=== PATIENT | female | born 1995 | race Two or more races ===

== ENCOUNTER 2017-01-14 20:56 | Emergency (ER) | payer SELFPAY ==
[~2017-01-14] VITALS: Ht 170.2 cm; Wt 60.8 kg
[2017-01-14 22:30] VITALS: BP 122/82
[2017-01-14] MEDS ORDERED: CYCLOBENZAPRINE HCL 10 MG TAB PO ONE (22:30)
[2017-01-14] MEDS ORDERED: IBUPROFEN 600 MG TAB PO ONE (22:30)
== END 2017-01-14 23:23 | disposition home or self-care (01) ==
LOC: ER 21:27
DX: S46.819A Strain of other muscles, fascia and tendons at shoulder and upper arm level, unspecified arm, initial encounter (principal); M54.9 Dorsalgia, unspecified; V49.49XA Driver injured in collision with other motor vehicles in traffic accident, initial encounter; Y93.89 Activity, other specified; Y99.8 Other external cause status; Y92.410 Unspecified street and highway as the place of occurrence of the external cause

== ENCOUNTER → 2018-05-29 | Day surgery (SDC) | payer MEDICAID ==
[~2018-05-29] MED LIST: GLYCOPYRROLATE 0.2 MG/ML 1ML VIAL ONE; KETOROLAC TROMETH 30 MG/ML 1ML VIAL IV ONE; KETOROLAC TROMETH 60MG/2ML VIAL IM ONE; MEPERIDINE HCL (50 MG/ML) 1 ML VIAL ONE; METOCLOPRAMIDE HCL 5MG/ml INJ 2ml VIAL IV ONE; MIDAZOLAM HCL 1MG/1ML-2 ML VIAL ONE; NEOSTIGMINE 1 MG/ML INJ (10mg/10ML VIAL) ONE; ONDANSETRON HCL 4 MG/2 ML VIAL ONE; ROCURONIUM 10MG/ML 10ML VIAL IV ONE; SODIUM CHLORIDE LOCK 10 ML ONE; fentaNYL CITRATE 100 MCG/2 ML VL IV ONE; fentaNYL CITRATE 100 MCG/2 ML VL ONE
[2018-05-29 12:44] VITALS: BP 110/69
== END | disposition home or self-care (01) ==
LOC: SUR 08:19
PROVIDERS: ATTEND Obstetrics & Gynecology Gynecologic Oncology
DX: N83.202 Unspecified ovarian cyst, left side (principal); N92.0 Excessive and frequent menstruation with regular cycle; Z3A.01 Less than 8 weeks gestation of pregnancy
CPT/HCPCS: 58558; 58662; J2175; J2765; J3010; J1885; J2250; J2405

== ENCOUNTER 2018-06-04 22:01 | Emergency (ER) | payer MEDICAID ==
[~2018-06-04] VITALS: Ht 170.2 cm; Wt 66.7 kg
[2018-06-04 22:06] VITALS: BP 140/82
== END 2018-06-04 23:48 | disposition home or self-care (01) ==
LOC: ER 22:03
DX: L76.82 Other postprocedural complications of skin and subcutaneous tissue (principal); L08.89 Other specified local infections of the skin and subcutaneous tissue; Y83.8 Other surgical procedures as the cause of abnormal reaction of the patient, or of later complication, without mention of misadventure at the time of the procedure

== ENCOUNTER 2020-03-22 09:57 | Emergency (ER) | payer MEDICAID ==
[~2020-03-22] VITALS: Ht 170.2 cm; Wt 74.8 kg
[2020-03-22 10:17] LABS: Basophils # (auto) 0 10 ^3/uL (0-0.2); Basophils % (auto) 0.5 % (0.0-2.0); Eosinophils # (auto) 0.1 10 ^3/uL (0-0.8); Eosinophils % (auto) 1.1 % (0.0-7.0); Hematocrit 43.2 % (36.0-46.0); Hemoglobin 14.8 g/dL (12.2-16.2); Lymphocytes # (auto) 1.9 10 ^3/uL (0.4-5.4); Lymphocytes % (auto) 34.6 % (10.0-50.0); Mean Corpuscular Hemoglobin 32.7 pg (28.0-32.0); Mean Corpuscular Hgb Conc. 34.3 g/dL (32.0-36.0); Mean Corpuscular Volume 95.2 fL (80.0-100.0); Monocytes # (auto) 0.3 10 ^3/uL (0-1.3); Monocytes % (auto) 6.1 % (0.0-12.0); Neutrophils # (auto) 3.1 10 ^3/uL (1.6-8.6); Neutrophils % (auto) 57.7 % (37.0-80.0); Nucleated Red Blood Cells % 0.1 %; Platelet Count (auto) 185 10^3/uL (140-450); Red Blood Cells 4.54 10^6/uL (4.0-5.20); White Blood Cell 5.4 10^3/uL (4.4-10.8)
[2020-03-22 10:36] LABS: Urine Bacteria NONE SEEN /hpf (None Seen); Urine Blood TRACE /uL (Negative); Urine Mucus FEW (None Seen); Urine Specific Gravity 1.016 (1.001-1.035); Urine WBC 1 /hpf (0 - 5)
[2020-03-22 10:51] LABS: Albumin 3.8 g/dL (3.4-5.0); BUN/Creatinine Ratio 9.3; Calcium 8.6 mg/dL (8.5-10.1); Potassium 3.6 mmol/L (3.5-5.1)
[2020-03-22 10:54] LABS: Bilirubin, Total 1.1 mg/dL (0.2-1.0)
[2020-03-22 11:35] VITALS: BP 113/59
== END 2020-03-22 12:07 | disposition home or self-care (01) ==
LOC: ER 09:57
DX: N20.0 Calculus of kidney (principal); D27.0 Benign neoplasm of right ovary
CPT/HCPCS: 36415; 74176; 80053; 81001; 81025; 85025

== ENCOUNTER 2020-11-28 18:09 | Emergency (ER) | payer MEDICAID | END 2020-11-28 20:34 | disposition left against medical advice (07) | LOC: ER 18:10 | DX: R31.9 Hematuria, unspecified (principal); Z53.21 Procedure and treatment not carried out due to patient leaving prior to being seen by health care provider ==

== ENCOUNTER 2020-12-02 12:27 | Emergency (ER) | payer MEDICAID ==
[~2020-12-02] VITALS: Ht 170.2 cm; Wt 78.9 kg
[2020-12-02 12:48] VITALS: BP 126/81
[2020-12-02 13:55] LABS: Urine Bacteria FEW /hpf (None Seen); Urine Blood Negative /uL (Negative); Urine Specific Gravity 1.012 (1.001-1.035); Urine WBC 5 /hpf (0 - 5)
[2020-12-02] MEDS ORDERED: cefTRIAXone SOD 1,000 MG VL IM ONE (14:00)
[2020-12-02] MEDS ORDERED: PHENAZOPYRIDINE HCL 100 MG TAB PO ONE (14:00)
[2020-12-02] MEDS ORDERED: KETOROLAC TROMETH 60MG/2ML VIAL IM ONE (14:30)
== END 2020-12-02 15:06 | disposition home or self-care (01) ==
LOC: ER 12:27
DX: N20.0 Calculus of kidney (principal); N39.0 Urinary tract infection, site not specified
CPT/HCPCS: 74176; 81001; 96372; 99284; J0696; J1885

== ENCOUNTER 2021-02-23 16:21 | Emergency (ER) | payer MEDICAID ==
[~2021-02-23] VITALS: Ht 170.2 cm; Wt 81.6 kg
[2021-02-23 16:35] VITALS: BP 139/95
[2021-02-23 17:52] LABS: Basophils # (auto) 0 10 ^3/uL (0-0.2); Basophils % (auto) 0.4 % (0.0-2.0); Eosinophils # (auto) 0 10 ^3/uL (0-0.8); Eosinophils % (auto) 0.3 % (0.0-7.0); Hematocrit 43.6 % (36.0-46.0); Lymphocytes # (auto) 1.4 10 ^3/uL (0.4-5.4); Lymphocytes % (auto) 18.2 % (10.0-50.0); Mean Corpuscular Hemoglobin 32.8 pg (28.0-32.0); Mean Corpuscular Hgb Conc. 34.5 g/dL (32.0-36.0); Monocytes # (auto) 0.3 10 ^3/uL (0-1.3); Monocytes % (auto) 4.3 % (0.0-12.0); Neutrophils % (auto) 76.8 % (37.0-80.0); Nucleated Red Blood Cells % 0.1 %; Platelet Count (auto) 203 10^3/uL (140-450); Red Blood Cells 4.59 10^6/uL (4.0-5.20); Red Cell Distribution Width 13.3 % (11.8-14.3); White Blood Cell 7.9 10^3/uL (4.4-10.8)
[2021-02-23 18:31] LABS: Urine Bacteria FEW /hpf (None Seen); Urine Blood Negative /uL (Negative); Urine Specific Gravity 1.005 (1.001-1.035); Urine WBC <1 /hpf (0 - 5)
== END 2021-02-23 19:42 | disposition home or self-care (01) ==
LOC: ER 16:21
DX: O20.0 Threatened abortion (principal); Z3A.01 Less than 8 weeks gestation of pregnancy
CPT/HCPCS: 36415; 76801; 76817; 81001; 84702; 85025

== ENCOUNTER 2021-03-20 18:52 | Emergency (ER) | payer MEDICAID ==
[~2021-03-20] VITALS: Ht 170.2 cm; Wt 81.6 kg
[2021-03-20 18:52] VITALS: BP 120/69
[2021-03-20 20:31] LABS: Basophils # (auto) 0 10 ^3/uL (0-0.2); Basophils % (auto) 0.4 % (0.0-2.0); Eosinophils # (auto) 0.1 10 ^3/uL (0-0.8); Eosinophils % (auto) 0.8 % (0.0-7.0); Hematocrit 41.2 % (36.0-46.0); Hemoglobin 14.3 g/dL (12.2-16.2); Lymphocytes # (auto) 2.4 10 ^3/uL (0.4-5.4); Lymphocytes % (auto) 30.5 % (10.0-50.0); Mean Corpuscular Hemoglobin 32.8 pg (28.0-32.0); Mean Corpuscular Hgb Conc. 34.8 g/dL (32.0-36.0); Mean Corpuscular Volume 94.2 fL (80.0-100.0); Monocytes # (auto) 0.5 10 ^3/uL (0-1.3); Neutrophils # (auto) 4.8 10 ^3/uL (1.6-8.6); Neutrophils % (auto) 61.3 % (37.0-80.0); Nucleated Red Blood Cells % 0.1 %; Platelet Count (auto) 205 10^3/uL (140-450); Red Blood Cells 4.37 10^6/uL (4.0-5.20); Red Cell Distribution Width 13.1 % (11.8-14.3); White Blood Cell 7.8 10^3/uL (4.4-10.8)
== END 2021-03-20 21:10 | disposition left against medical advice (07) ==
LOC: ER 18:58
DX: O26.851 Spotting complicating pregnancy, first trimester (principal); Z3A.08 8 weeks gestation of pregnancy; Z53.21 Procedure and treatment not carried out due to patient leaving prior to being seen by health care provider
CPT/HCPCS: 36415; 84702; 85025